=== PATIENT | female | born 2000 | race Hispanic/Latino ===

== ENCOUNTER 2022-08-25 22:17 | Inpatient (IN) | payer OTHER ==
[~2022-08-25 22:17] MED LIST: Bupivacaine 0.25% HCL 30 ML VIAL ONE
[2022-08-25 23:03] VITALS: BMI 34.2
[2022-08-26] MEDS ORDERED: Methylergonovine 0.2 MG/ML VIAL IM PRN (00:34)
[2022-08-26] MEDS ORDERED: Carboprost 250 MCG/ML AMP IM PRN (00:34)
[2022-08-26] MEDS ORDERED: Acetaminophen 500 MG TAB PO PRN (00:34)
[2022-08-26] MEDS ORDERED: Misoprostol 200 MCG TAB PR PRN (00:34)
[2022-08-26] MEDS ORDERED: hydrALAZINE 20 MG/ML VIAL SLOW IVP PRN ×2 (00:34→21:59)
[2022-08-26] MEDS ORDERED: Ibuprofen 800 MG TAB PO PRN (00:34)
[2022-08-26] MEDS ORDERED: HYDROcodone/Acetaminophen 5/325 mg Tablet PO PRN ×3 (00:34→21:59)
[2022-08-26] MEDS ORDERED: Lidocaine 1% (PF) 30 ML VIAL SC PRN (00:34)
[2022-08-26] MEDS ORDERED: Promethazine HCl 25 MG/ML VIAL IM PRN ×3 (00:34→21:59)
[2022-08-26] MEDS ORDERED: Diphenoxylate HCl/Atropine Tablet PO PRN (00:34)
[2022-08-26] MEDS ORDERED: Ondansetron PF 4 MG/2 ML Vial IVP PRN ×3 (00:34→21:59)
[2022-08-26] MEDS ORDERED: NS w/ Oxytocin 30 units 500 ML IV SCH ×2 (00:45)
[2022-08-26] MEDS ORDERED: Misoprostol 100 MCG TAB ONE (01:12)
[2022-08-26 01:29] LABS: Hemoglobin 10.8 g/dL (12.0-15.5); Mean Corpuscular HGB CONC 33.3 g/dL (32.0-36.0); Mean Corpuscular Hemoglobin 27.6 pg (27.0-33.0); Mean Corpuscular Volume 82.7 fl (81.6-98.3); Mean Platelet Volume 11.8 fl (7.4-10.4); Platelet Count 229 10x3/uL (150-450); RBC Distribution Width 14.4 % (11.5-14.5); Red Blood Cell (RBC) Count 3.92 10x6/uL (3.90-5.03); White Blood Cell (WBC) Count 9.7 10x3/uL (3.5-10.5)
[2022-08-26 01:48] LABS: ALT (SGPT) 10 U/L (8-55); AST (SGOT) 17 U/L (5-34); Albumin 3.2 g/dL (3.5-5.0); Alkaline Phosphatase 194 U/L (40-110); Anion Gap 13 mmol/L (10-20); BUN (Urea Nitrogen) 9 mg/dL (7.0-18.7); Bilirubin, Total 0.2 mg/dL (0.2-1.2); Calc. Creatinine Clearance 199 mL/min (70-130); Calcium 8.8 mg/dL (7.8-10.44); Carbon Dioxide 22 mmol/L (22-29); Chloride 107 mmol/L (98-107); Estimated GFR 127; Globulin 3.5 g/dL (2.4-3.5); Glucose 92 mg/dL (70-105); Potassium 3.7 mmol/L (3.5-5.1); Protein, Total 6.7 g/dL (6.0-8.3); Sodium 138 mmol/L (136-145)
[2022-08-26 02:08] LABS: Syphilis Antibody Nonreactive (Nonreactive); Syphilis Antibody Index 0.04 S/CO (<1.00 Non-Reactive)
[2022-08-26 02:09] LABS: HBSAg Index 0.22 S/CO (0-0.99); Hep B Surf Ag Non-Reactive S/CO (NonReactive)
[2022-08-26] MEDS: Butorphanol Tartrate 1 MG/ML VIAL SLOW IVP PRN ×4 (02:59→06:35)
[2022-08-26] MEDS ORDERED: Fentanyl 2 mcg/Bup 0.1% Cadd 100 ML ONE (07:58)
[2022-08-26] MEDS ORDERED: diphenhydrAMINE 50 MG/ML VIAL IVP PRN (09:23)
[2022-08-26] MEDS ORDERED: Acetaminophen 325 MG TAB PO PRN (09:23)
[2022-08-26] MEDS ORDERED: Moisturizing Cream (Eucerin) 113 GM JAR TOP PRN (09:23)
[2022-08-26] MEDS ORDERED: Naloxone HCl 0.4 mg/ml Vial IVP PRN ×2 (09:23)
[2022-08-26] MEDS ORDERED: ePHEDrine Sulfate 50 MG/10 ML VIAL SLOW IVP PRN (09:23)
[2022-08-26] MEDS ORDERED: Lactated Ringer's 500 ML IV PRN (09:23)
[2022-08-26] MEDS ORDERED: Communication Order-Pharmacy FS SCH (09:30)
[2022-08-26] MEDS ORDERED: Fentanyl 2 mcg/Bupivacaine 0.1% Cassette 100 ML EPIDURAL SCH (09:30)
[2022-08-26 10:28] LABS: SARS-CoV-2 NAA Rapid Test Not Detected (NotDetected)
[2022-08-26] MEDS: Misoprostol 100 MCG TAB VAG SCH (14:24)
[2022-08-26] MEDS: Lactated Ringer's 1,000 ML IV SCH (14:24)
[2022-08-26] MEDS ORDERED: Erythromycin Base 0.5% Oint 1 GM TUBE ONE (18:32)
[2022-08-26] MEDS ORDERED: Phytonadione Neonatal 1 MG/0.5 ML AMP ONE (18:32)
[2022-08-26] MEDS ORDERED: Lanolin Ointment 7 GM TUBE TOP PRN (21:59)
[2022-08-26] MEDS ORDERED: Bisacodyl 10 MG SUPP PR PRN (21:59)
[2022-08-26] MEDS ORDERED: Milk Of Magnesia 30 ML UDCUP PO PRN (21:59)
[2022-08-26] MEDS ORDERED: diphenhydrAMINE 25 MG CAP PO PRN (21:59)
[2022-08-26] MEDS ORDERED: Benzocaine-Menthol 82.5 ML CAN TOP PRN (21:59)
[2022-08-26] MEDS ORDERED: Boostrix 0.5 ML (Tdap) VIAL (>/=7 yrs of age) IM ONE (21:59)
[2022-08-26] MEDS ORDERED: Preparation H Ointment 28 GM TUBE PR PRN (21:59)
[2022-08-26] MEDS: Ibuprofen 800 MG TAB PO SCH (22:25)
[2022-08-27] MEDS: Ibuprofen 800 MG TAB PO SCH ×3 (05:25→21:15)
[2022-08-27] MEDS: Prenatal Vitamin 1 TAB PO SCH (08:55)
[2022-08-27] MEDS: Docusate 100 MG CAP PO SCH ×2 (08:55→21:15)
[2022-08-27] MEDS: Ferrous Sulfate 325 MG TAB PO SCH ×2 (08:55→18:25)
[2022-08-27] MEDS: Misoprostol 100 MCG TAB VAG SCH ×2 (20:25→20:26)
[2022-08-27] MEDS: Lactated Ringer's 1,000 ML IV SCH (20:26)
[2022-08-28] MEDS: Ibuprofen 800 MG TAB PO SCH ×2 (05:33→14:35)
[2022-08-28 08:31] VITALS: BP 116/57; TEMP 98.1
[2022-08-28] MEDS: Ferrous Sulfate 325 MG TAB PO SCH (08:58)
[2022-08-28] MEDS: Docusate 100 MG CAP PO SCH (09:06)
[2022-08-28] MEDS: Prenatal Vitamin 1 TAB PO SCH (09:06)
== END 2022-08-28 14:40 | disposition home or self-care (01) | DRG 807 ==
LOC: UNDOADMIN 22:17 → CSHLD 22:17 → CSHPP 08-26 20:25
PROVIDERS: ADMIT Student in an Organized Health Care Education/Training Program; ATTEND Student in an Organized Health Care Education/Training Program
PROC: 10E0XZZ Delivery of Products of Conception, External Approach (ICD-10-PCS; principal; 2022-08-26)
PROC: 0HQ9XZZ Repair Perineum Skin, External Approach (ICD-10-PCS; 2022-08-26)
DX: O41.03X0 Oligohydramnios, third trimester, not applicable or unspecified (principal); Z37.0 Single live birth; Z3A.39 39 weeks gestation of pregnancy; O70.0 First degree perineal laceration during delivery; D50.0 Iron deficiency anemia secondary to blood loss (chronic); O90.81 Anemia of the puerperium; Z20.822 Contact with and (suspected) exposure to COVID-19
CPT/HCPCS: 36415; 51702; 80053; 85027; 86780; 86850; 86900; 86901; 87340; J0595; J2405; J2590; S0020; U0002

== ENCOUNTER 2024-10-16 15:13 | Emergency (ER) | payer OTHER, SELFPAY ==
[2024-10-16] MEDS ORDERED: Ketorolac Tromethamine 30 MG (1 mL) VIAL ONE (15:54)
[2024-10-16 16:12] LABS: #Basophils 0.06 10x3/uL (0.0-0.2); #Eosinophils 0.22 10x3/uL (0.0-0.5); #Monocytes 0.99 10x3/uL (0.0-1.1); #Neutrophils 8.39 10x3/uL (1.5-8.4); %Basophils 0.5 % (0.0-2.0); %Eosinophils 1.7 % (0.0-6.0); %Lymphocytes 26.3 % (18.0-47.0); %Monocytes 7.5 % (0.0-10.0); %Neutrophils 63.5 % (40.0-75.0); Hematocrit 41.9 % (34.9-44.5); Mean Corpuscular HGB CONC 33.4 g/dL (32.0-36.0); Mean Corpuscular Hemoglobin 26.9 pg (27.0-33.0); Mean Corpuscular Volume 80.6 fL (81.6-98.3); Mean Platelet Volume 10.6 fL (7.4-10.4); Platelet Count 329 10x3/uL (150-450); RBC Distribution Width 13.5 % (11.5-14.5)
[2024-10-16 16:27] LABS: Anion Gap 16 mmol/L (10-20); BUN (Urea Nitrogen) 11 mg/dL (7.0-18.7); Calc. Creatinine Clearance 0 mL/min (70-130); Calcium 9.5 mg/dL (7.8-10.44); Carbon Dioxide 21 mmol/L (22-29); Chloride 104 mmol/L (98-107); Estimated GFR 105; Glucose 89 mg/dL (70-105); Sodium 137 mmol/L (136-145)
[2024-10-16 16:30] LABS: ALT (SGPT) 22 U/L (8-55); AST (SGOT) 27 U/L (5-34); Albumin 3.8 g/dL (3.5-5.0); Alkaline Phosphatase 82 U/L (40-110); Bilirubin, Direct 0.1 mg/dL (0.1-0.3); Bilirubin, Total 0.2 mg/dL (0.2-1.2); Lipase 20 U/L (8-78); Protein, Total 9.2 g/dL (6.0-8.3)
[2024-10-16 16:35] LABS: BHCG - Serum Negative (NEGATIVE)
[2024-10-16 16:36] LABS: Pregs Control Background? CLEAR/WHITE (CLR/WHITE); Pregs Control Bar Appear? YES (CONTROL BAR)
== END 2024-10-16 17:09 | disposition home or self-care (01) ==
LOC: CSHERS 15:13
DX: K80.20 Calculus of gallbladder without cholecystitis without obstruction (principal)
CPT/HCPCS: 76705; 80048; 80076; 83690; 84703; 85025; 96374; J1885